=== PATIENT | female | born 1980 | race African-American/Black ===

== ENCOUNTER 2018-01-31 14:23 | Emergency (ER) | payer MEDICARE, OTHER ==
[~2018-01-31] VITALS: Ht 177.8 cm; Wt 74.0 kg
[2018-01-31] MEDS ORDERED: KETOROLAC 60MG/2ML VIAL IM ONE (16:30)
[2018-01-31] MEDS ORDERED: CYCLOBENZAPRINE 10MG TABLET PO ONE (16:30)
[2018-01-31 16:42] VITALS: BP 144/92
== END 2018-01-31 18:18 | disposition home or self-care (01) ==
LOC: ER 15:29
DX: S43.401A Unspecified sprain of right shoulder joint, initial encounter (principal); M54.89 Other dorsalgia; V49.50XA Passenger injured in collision with unspecified motor vehicles in traffic accident, initial encounter; Y93.89 Activity, other specified; Y92.410 Unspecified street and highway as the place of occurrence of the external cause; F17.210 Nicotine dependence, cigarettes, uncomplicated; F12.90 Cannabis use, unspecified, uncomplicated
CPT/HCPCS: 73030; 81025; 96372; 99284; J1885

== ENCOUNTER 2018-07-20 06:58 | Emergency (ER) | payer MEDICARE, OTHER ==
[~2018-07-20] VITALS: Ht 177.8 cm; Wt 74.0 kg
[2018-07-20 08:42] LABS: BASOPHILS % 0.7 % (0.0-2.0); EOSINOPHILS % 0.2 % (0.0-5.0); HEMATOCRIT. 40.9 % (36.0-48.0); HEMOGLOBIN. 13.9 g/dL (12.0-16.0); MEAN CORPUSCULAR HEMOGLOBIN 33.8 pg (28.0-32.0); MEAN CORPUSCULAR VOLUME 99.8 fL (81.0-99.0); MONOCYTES % 12.1 % (2.0-8.0); PLATELET 323 x1000/uL (130-400); RED CELL DISTRIBUTION WIDTH 14.2 % (11.6-14.6)
[2018-07-20 08:47] LABS: CHLORIDE 107 mEq/L (98-107)
[2018-07-20 08:47] LABS: CLARITY URINE CLOUDY (CLEAR); COLOR URINE YELLOW (YELLOW); KETONES URINE NEGATIVE (NEGATIVE); LEUKOCYTE ESTERASE URINE NEGATIVE (NEGATIVE); NITRITE URINE NEGATIVE (NEGATIVE); OCCULT BLOOD URINE 1+ (NEGATIVE); PH URINE 5.5 (4.5-8.0); PROTEIN URINE TRACE (NEGATIVE); SPECIFIC GRAVITY URINE 1.021 (1.005-1.030)
[2018-07-20 08:49] LABS: PROTHROMBIN TIME 9.8 sec (9.1-11.1)
[2018-07-20 09:00] LABS: B-HCG QUANTITATIVE < 1 mIU/mL (<3)
[2018-07-20 09:09] LABS: *AMPHETAMINES SCREEN URINE NEGATIVE (NEGATIVE); *BARBITURATES SCREEN URINE NEGATIVE (NEGATIVE); *BENZODIAZEPINES SCREEN URINE NEGATIVE (NEGATIVE)
[2018-07-20 09:10] LABS: METHADONE URINE SCREEN NEGATIVE (NEGATIVE); OPIATES URINE SCREEN NEGATIVE (NEGATIVE); PHENCYCLIDINE URINE SCREEN NEGATIVE (NEGATIVE)
[2018-07-20 09:18] LABS: *COCAINE SCREEN URINE PRESUMTIVE POSITIVE (NEGATIVE); CANNABINOID URINE SCREEN PRESUMTIVE POSITIVE (NEGATIVE)
[2018-07-20 09:56] VITALS: BP 125/82
== END 2018-07-20 09:58 | disposition home or self-care (01) ==
LOC: ER 06:58
DX: R10.32 Left lower quadrant pain (principal); F14.10 Cocaine abuse, uncomplicated; F12.10 Cannabis abuse, uncomplicated; N83.299 Other ovarian cyst, unspecified side; F20.9 Schizophrenia, unspecified; F31.9 Bipolar disorder, unspecified; F17.200 Nicotine dependence, unspecified, uncomplicated
CPT/HCPCS: 36415; 76830; 76856; 80053; 80305; 81003; 81025; 84702; 85025; 85610; 99285

== ENCOUNTER 2019-07-06 01:36 | Emergency (ER) | payer MEDICARE, OTHER ==
[~2019-07-06] VITALS: Ht 177.8 cm; Wt 79.0 kg
[2019-07-06 06:18] VITALS: BP 110/68
== END 2019-07-06 06:20 | disposition home or self-care (01) ==
LOC: ER 01:36
DX: R20.2 Paresthesia of skin (principal); F12.10 Cannabis abuse, uncomplicated; F14.10 Cocaine abuse, uncomplicated
CPT/HCPCS: 81025; 99283

== ENCOUNTER 2025-09-27 16:52 | Emergency (ER) | payer MEDICAID ==
[~2025-09-27] VITALS: Ht 177.8 cm; Wt 77.0 kg
[2025-09-27 16:55] VITALS: O2SAT 100
[2025-09-27 16:59] VITALS: BP 130/87; PULSE 99; RESP 16; TEMP 36.7; O2SAT 99
[2025-09-27] MEDS: LIDOCAINE 5% PATCH TOP SCH (18:11)
[2025-09-27] MEDS: KETOROLAC 15MG/ML VIAL IM ONE (18:12)
[2025-09-27] MEDS ORDERED: CYCL10TA21 MT (19:42)
[2025-09-27] MEDS ORDERED: LIDO-53 TP (19:42)
[2025-09-27] MEDS ORDERED: IBUP-1455 MT (19:42)
== END 2025-09-27 20:10 | disposition home or self-care (01) ==
LOC: ER 16:52
DX: M54.50 Low back pain, unspecified (principal); M62.830 Muscle spasm of back; F15.90 Other stimulant use, unspecified, uncomplicated; F14.90 Cocaine use, unspecified, uncomplicated; Z98.890 Other specified postprocedural states
CPT/HCPCS: 99283; 81025; 72100; 96372; J1885